=== PATIENT | male | born 1995 | race African-American/Black ===

== ENCOUNTER 2017-04-09 17:42 | Emergency (ER) | payer SELFPAY ==
[~2017-04-09] VITALS: Ht 193 cm; Wt 90.7 kg
[~2017-04-09 17:42] MED LIST: TRAMADOL HCL50 MG ORAL; ZANTAC150 MG ORAL; ZOFRAN ODT4 MG ORAL
[2017-04-09 18:03] VITALS: BP 157/90
[2017-04-09] MEDS ORDERED: PREDNISONE20 MG ORAL (18:37)
[2017-04-09] MEDS ORDERED: TESSALON PERLE100 MG ORAL (18:37)
[2017-04-09] MEDS ORDERED: PROAIR HFA8.5 GM INH (18:37)
[2017-04-09 18:45] VITALS: BP 148/90
--- NOTE | 2017-04-09 19:31 | Emergency Room Report ---
History of Present Illness General Chief Complaint: Upper Respiratory Illness Source: Patient Present Illness HPI The patient is a 21-year-old male who denies any medical history presenting for dry cough for the past 4 days. He states that the cough elicits a pain described as a 7/10 dull ache to the mid chest. He has tried [id number] medications which have not helped. He states that he has had this in the past and only promethazine with codeine has helped. He states that his primary doctor "always gives me this medication" but he is unable to see him at this time. He denies any sick contacts recent travel. He denies any other symptoms including nausea, vomiting, fever, chills, sore throat, ear pain, shortness of breath, rash Allergies: Coded Allergies: No Known Allergies (Unverified , 01/08/16) Patient History Past Medical History: see triage record Pertinent Family History: none Reviewed Nursing Documentation: PMH: Agreed, PSxH: Agreed Nursing Documentation-PMH Past Medical History: No Stated History Review of Systems All Other Systems: negative except mentioned in HPI Physical Exam Vital Signs Date Time Temp Pulse Resp B/P Pulse Ox O2 Delivery O2 Flow Rate FiO2 04/09/17 17:49 98.2 72 18 157/90 100 Room Air Sp02 EP Interpretation: reviewed, normal General Appearance: no apparent distress, alert, GCS 15, non-toxic Head: normocephalic, atraumatic Eyes: bilateral eye PERRL, bilateral eye normal inspection ENT: hearing grossly normal, normal pharynx, no angioedema, normal voice Neck: full range of motion, supple/symm/no masses Respiratory: chest non-tender, lungs clear, normal breath sounds, speaking full sentences Cardiovascular #1: regular rate, rhythm, no edema Musculoskeletal: back normal, gait/station normal, normal range of motion, non- tender Neurologic: alert, oriented x3, responsive, motor strength/tone normal, sensory intact, speech normal Psychiatric: judgement/insight normal, memory normal, mood/affect normal, no suicidal/homicidal ideation Skin: normal color, no rash, warm/dry, well hydrated Lymphatic: no adenopathy Medical Decision Making PA Attestation Dr. Villa is my supervising physician. Patient management was discussed with my supervising physician Diagnostic Impression: Primary Impression: Bronchitis ER Course The patient is a 21-year-old male who denies any medical history presenting for dry cough for the past 4 days Differential diagnosis include but not limited to pharyngitis, sinusitis, AOM, bronchitis, PNA PE: No apparent distress. No TTP over maxillary or frontal sinuses. Lungs CTA bilat. No wheezing. No accessory muscle use. Heart: RRR, no abnormal heart sounds Ears: external auditory canal clear. Non erythematous. Bilat TM intact. Cone of light present bilat. No bulging of TM. No serous fluid seen. no nasal D/C No cervical lymphad No tonsillar exudate. Uvula midline.Oropharynx non erythematous There are no signs of infection. The patient will be treated with albuterol, prednisone, and cough medication. When he was told that he would not be getting promethazine with codeine, he left without signing out. He was told to followup with his primary doctor Last Vital Signs Date Time Temp Pulse Resp B/P Pulse Ox O2 Delivery O2 Flow Rate FiO2 04/09/17 18:45 98.2 69 18 148/90 100 Room Air Status: improved Disposition: HOME, SELF-CARE Condition: Improved Scripts Prednisone* (PREDNISONE*) 20 Mg Tablet 40 MG ORAL DAILY, #8 TAB Prov: RISHI ROEGL P.A. 04/09/17 Albuterol Sulfate* (PROAIR HFA*) 8.5 Gm Hfa.aer.ad 2 PUFFS INH Q6H, #8.5 GM 0 Refills Prov: RISHI ROGEL P.A. 04/09/17 Benzonatate* (TESSALON PERLE*) 100 Mg Capsule 100 MG ORAL THREE TIMES A DAY, #15 PERLE Prov: JIMANRISHI P.A. 04/09/17 Patient Instructions: Acute Bronchitis Additional Instructions: I discussed my findings with the patient. All questions and concerns have been answered. Treatment and medication compliance have been addressed. I advised the patient that they need to follow up with PMD in 3-5 days. Return to ED if pain remains or worsens, cough worsens or remains, you notice blood in your sputum, you notice wheezing, you experience a fever, or if needed for any reason. Patient verbalized understanding of discharge instructions. RISHI ROGEL April 09, 2017 19:31
== END 2017-04-09 18:48 | disposition home or self-care (01) ==
LOC: EMR 18:00
DX: J40 Bronchitis, not specified as acute or chronic (principal)
CPT/HCPCS: 99284

== ENCOUNTER 2018-03-01 10:01 | Emergency (ER) | payer MEDICAID ==
[~2018-03-01] VITALS: Ht 193 cm; Wt 95.3 kg
[~2018-03-01 10:01] MED LIST changes: +PREDNISONE20 MG ORAL; +PROAIR HFA8.5 GM INH; +TESSALON PERLE100 MG ORAL
[2018-03-01] MEDS ORDERED: NKM (10:09)
[2018-03-01 10:13] VITALS: BP 135/69
[2018-03-01] MEDS ORDERED: LISINOPRIL5 MG ORAL (10:13)
[2018-03-01] MEDS ORDERED: ANTI-ITCH28 G1 TP (10:21)
[2018-03-01] MEDS ORDERED: PERMETHRIN60 GM TOPIC (10:21)
--- NOTE | 2018-03-01 11:19 | Emergency Room Report ---
History of Present Illness General Chief Complaint: Skin Rash/Abscess Source: Patient Present Illness HPI Patient is a 22-year-old male who presented after increased skin rash. Patient reports having increased sore throat. He reports having increased itchiness to the his hands as well as to his forearms and both feet. He stated that he had noticed some lesions to his mouth. Patient stated he had recently scratched while playing basketball to his right upper extremity. He subsequently developed these lesions. Patient states he's been exposed to some small children who are currently ill. Allergies: Coded Allergies: No Known Allergies (Unverified , 01/08/16) Patient History Past Medical History: see triage record Reviewed Nursing Documentation: PMH: Agreed; PSxH: Agreed Nursing Documentation-PMH Past Medical History: No History, Except For Hx Hypertension: Yes Review of Systems All Other Systems: negative except mentioned in HPI Physical Exam Vital Signs Date Time Temp Pulse Resp B/P (MAP) Pulse Ox O2 Delivery O2 Flow Rate FiO2 03/01/18 10:05 98.2 66 18 135/69 97 Room Air 98.2 General Appearance: well appearing, no apparent distress, alert, GCS 15 Head: normocephalic, atraumatic ENT: hearing grossly normal, normal voice Neck: full range of motion, supple Respiratory: no respiratory distress, speaking full sentences Musculoskeletal: no calf tenderness Neurologic: normal gait Psychiatric: mood/affect normal Skin: other - extremity papular lesions to finger with excoriations Medical Decision Making Diagnostic Impression: Primary Impression: Rash and other nonspecific skin eruption ER Course Patient presented for skin rash. Differential diagnosis included was not limited to scabies, contact dermatitis, jyjk-wljp-nkk-mouth disease, among others. Patient has a benign exam and does not appear to require any further imaging or laboratory testing at this time. The patient the appears to have xnvy-hlpg-exu-mouth disease. The patient was given prescription for Elimite as well as hydrocortisone cream. The patient has some lesions which are consistent with scabies so he will been treated empirically for scabies with permethrin. The patient is advised to follow up with primary care doctor in 1 -2 days. Patient is advised to return if any worsening condition or if any changes in status that are concerning. This report is dictated with [employer] supervisor special effects software which may occasionally lead to discrepancies related to use of this software. Last Vital Signs Date Time Temp Pulse Resp B/P (MAP) Pulse Ox O2 Delivery O2 Flow Rate FiO2 03/01/18 10:29 98.2 66 18 135/69 97 Room Air 98.2 Status: improved Disposition: HOME, SELF-CARE Condition: Stable Scripts Permethrin* (ELIMITE*) 60 Gm Cream..g. 1 APPLIC TOPIC ONCE, #60 GM 0 Refills Apply cream from head to toe; leave on for 8-14 hours before washing off with water; may reapply in 1 week if live mites appear. Prov: Steve Estrella 03/01/18 Hydrocortisone 2% Cream (ANTI-ITCH 2% CREAM) Y Cr 28 GM TP DAILY, #30 GM Prov: Steve Estrella 03/01/18 Referrals: NOT CHOSEN IPA/MD,REFERRING (PCP) Patient Instructions: Steve Pelaez Mar 01, 2018 11:19
== END 2018-03-01 10:30 | disposition home or self-care (01) ==
LOC: EMR 10:29
DX: R21 Rash and other nonspecific skin eruption (principal); I10 Essential (primary) hypertension
CPT/HCPCS: 99284